=== PATIENT | female | born 1965 | race Two or more races ===

== ENCOUNTER 2016-07-07 08:46 | Day surgery (SDC) | payer OTHER ==
[~2016-07-07] VITALS: Ht 162.6 cm; Wt 84.5 kg
[2016-07-07 09:49] VITALS: Ht 162.6 cm; Wt 84.5 kg
[2016-07-07] MEDS ORDERED: THY90 PO (10:04)
[2016-07-07 10:12] VITALS: BP 134/66; PULSE 55; RESP 13
[2016-07-07] MEDS ORDERED: FENTAnyl 50 MCG/ML VIAL ONE (11:17)
[2016-07-07] MEDS ORDERED: MIDAZOLAM 1 MG/ML 2 ML INJ ONE ×2 (11:17)
--- NOTE | 2016-07-07 11:51 | GILP ---
DATE OF PROCEDURE: NAME OF PROCEDURE: Colonoscopy. SURGEON: Madhav Sagastume MD PREOPERATIVE DIAGNOSIS: Screening colonoscopy. POSTOPERATIVE DIAGNOSES: 1. Colonoscopy all the way to the cecum. 2. Internal hemorrhoids. 3. No colon neoplasm was identified. INDICATION FOR THE PROCEDURE: Ms. Harmony Mendoza is a 51-year-old female patient who was scheduled for screening colonoscopy. The procedure and possible complications were well explained to the patient. She understood and con sented to the procedure. DESCRIPTION OF PROCEDURE: Under the influence of fentanyl and Versed the colonoscope was carefully introduced in the rectum and under direct vision it was advanced all the way to the cecum. FINDINGS: The patient had internal hemorrhoids. No colon neoplasm was identified. She tolerated the procedure very well and there was no complication from the procedure. At the end of the procedure she was awake with stable vital signs and she was discharged home to the care of he r family. IMPRESSION: 1. Colonoscopy all the way to the cecum. 2. Internal hemorrhoids. 3. No colon neoplasm was identified. Dictated By: MADHAV LOWE/NATHEN Conf#: [id number] DID#: [id number]
[2016-07-07 12:05] VITALS: BP 109/66; PULSE 48
== END 2016-07-07 13:54 | disposition home or self-care (01) ==
LOC: GIL 08:46
PROVIDERS: ATTEND Internal Medicine Gastroenterology
DX: Z12.11 Encounter for screening for malignant neoplasm of colon (principal); K64.8 Other hemorrhoids
CPT/HCPCS: 45378; J2250; J3010; Z7610